=== PATIENT | male | born 1980 | race African-American/Black ===

== ENCOUNTER 2017-07-23 22:33 | Emergency (ER) | payer MEDICAID ==
[~2017-07-23] VITALS: Ht 180.3 cm; Wt 110.0 kg
[2017-07-23 22:34] VITALS: BP 137/78; PULSE 75; RESP 16; TEMP 98.2; O2SAT 96
[2017-07-24] MEDS ORDERED: PROPARACAINE HCL 0.5% OPHT SOLN 15 ML BTL EACH EYE ONE
[2017-07-24] MEDS ORDERED: ERYTOIN10 RIGHT EYE (00:27)
--- NOTE | 2017-07-24 00:27 | PD ---
HPI Chief Complaint: Eye Problems/Injury Time Seen by Provider: 23:51 Travel History International Travel<30 days: No Contact w/Intl Traveler<30days: No Traveled to known affect area: No History of Present Illness HPI 36-year-old, presents of right eye pain injection and irritation tearing. No crusting. Symptoms ongoing for couple days. No associated symptoms. He does have some foreign body sensation. Does not wear contact lenses. No definite sick contacts. History Past Medical History Medical History: Denies Significant Hx Tetanus Vaccination: < 5 Years Influenza Vaccination: No Social History Alcohol Use: Yes (OCC) Tobacco Use: Yes (OCC) Allergies-Medications (Allergen,Severity, Reaction): Coded Allergies: penicillin G (Unverified Allergy, Severe, Anaphylaxis, 07/23/17) Reported Meds & Prescriptions Reported Meds & Active Scripts Active No Active Prescriptions or Reported Medications Review of Systems Except as stated in HPI: all other systems reviewed are Neg Physical Exam Narrative GENERAL: Well-appearing 36 year-old woman man, no acute distress. SKIN: Focused skin assessment warm/dry. HEAD: Atraumatic. Normocephalic. EYES: Pupils equal and round. No significant injection to the right eye. Some tearing. Minimal crusting. Bright light exam is unremarkable. Visual acuity is noted. Fluorescein exam was performed with no areas of abnormal uptake. Intraocular pressures were measured and were less than 15 and symmetric. Data Data Last Documented VS Vital Signs Date Time Temp Pulse Resp B/P (MAP) Pulse Ox O2 Delivery O2 Flow Rate FiO2 07/23/17 22:34 98.2 75 16 137/78 (97) 96 Room Air Orders Orders Proparacaine 0.5% Opth Soln (Alcaine 0.5 (07/24/17 00:00) [facility] Medical Decision Making Medical Screen Exam Complete: Yes Emergency Medical Condition: Yes Differential Diagnosis Viral conjunctivitis, allergic conjunctivitis, scleritis, abrasion, other Narrative Course Medical decision-making new para 36-year-old man with injected eye with tearing , pressures normal, no abnormal areas of uptake, no significant pain, suggestive of conjunctivitis. Recommend empiric treatment. Diagnosis Primary Impression: Infectious conjunctivitis of right eye Additional Instructions: Use erythromycin 4 times daily in the right eye. Follow-up with her primary doctor the next 2-4 days. Return to the emergency department symptoms. Med/Other Pt SpecificInfo: Prescription(s) given Scripts Erythromycin Opth Oint (Erythromycin Opth Oint) 5 Mg/Gm Oint 1 APPLIC RIGHT EYE QID for Infection, #1 TUBE 0 Refills Prov: Erik Renteria MD 07/24/17 Disposition: 01 DISCHARGE HOME Condition: Stable Erik Renteria MD Jul 24, 2017 00:27
[2017-07-24] MEDS ORDERED: ERYTHROMYCIN 0.5% OPTH OINT 3.5 GM TUBO RIGHT EYE ONE (00:30)
== END 2017-07-24 00:40 | disposition home or self-care (01) ==
LOC: NEPC 22:33
DX: H10.9 Unspecified conjunctivitis (principal)
CPT/HCPCS: 99283